=== PATIENT | male | born 1945 | race Caucasian/White ===

== ENCOUNTER 2017-09-16 15:00 | Inpatient (IN) ==
[2017-09-17 15:48] VITALS: BP 158/76
== END 2017-09-17 16:27 | disposition home or self-care (01) | DRG 247 ==
LOC: N.ED 15:00 → INTOOBSV 21:03 → N.TELEN 21:25 → N.EDINP 21:27 → N.TELEN 21:38 → N.SDSINP 21:38
PROVIDERS: ADMIT Internal Medicine Cardiovascular Disease; ATTEND Internal Medicine Cardiovascular Disease

== ENCOUNTER 2017-11-03 22:49 | Inpatient (IN) ==
[2017-11-03] MEDS ORDERED: ASPIRIN 325 MG TABLET PO STA (23:24)
[2017-11-03] MEDS: NITROGLYCERIN SL 0.4 MG TABLET SL PRN (23:35)
[2017-11-04] MEDS ORDERED: ONDANSETRON 4 MG/2 ML VIAL ONE (00:22)
[2017-11-04] MEDS ORDERED: ONDANSETRON 4 MG/2 ML VIAL IV STA (00:23)
[2017-11-04] MEDS: NITROGLYCERIN SL 0.4 MG TABLET SL PRN (00:24)
[2017-11-04] MEDS ORDERED: ACETAMINOPHEN 500 MG TABLET PO STA (00:27)
[2017-11-04] MEDS ORDERED: NITROGLYCERIN DRIP 50 MG/250 ML BOTTLE IV PRN ×2 (00:41→04:04)
[2017-11-04 00:42] LABS: Basophils % 0.4 % (0.0-0.8); Eosinophils # 0.1 10*3/uL (0.0-0.87); Hematocrit 31.6 VOL% (42.0-52.0); Hemoglobin 10.7 GM/DL (14.0-18.0); Immature Granulocytes % 0.3 %; Immature Granulocytes Absolute 0.02 #; Lymphocytes # 1.1 10*3/uL (1.4-4.0); Lymphocytes % 13.6 % (21.2-54.2); Mean Corpuscular HGB Conc 33.9 GM/DL (32-36); Mean Corpuscular Hemoglobin 31 PG (27-34); Mean Corpuscular Volume 90.3 FL (87-102); Mean Platelet Volume 10.2 FL (9.6-12.0); Monocytes # 0.7 10*3/uL (0.11-0.8); Monocytes % 9.1 % (1.7-12.7); Neutrophils # 5.9 10*3/uL (1.4-7.4); Neutrophils % 75.6 % (38.7-73.9); Platelet Count 216 T/CUMM (130-400); Red Cell Distribution Width 13.2 % (9.3-17.3); White Blood Count 7.8 T/CUMM (4-12)
[2017-11-04 00:55] LABS: Albumin 3.5 G/DL (3.4-5.0); Osmolality,Calculated 283.3 MOS/KG (273-304); Potassium 3.7 MMOL/L (3.5-5.1); Total Protein 7.3 G/DL (6.4-8.3)
[2017-11-04 00:57] LABS: Troponin I < 0.015 NG/ML (0.00-0.045)
[2017-11-04] MEDS ORDERED: DOCUSATE SODIUM 100 MG CAPSULE PO PRN (06:07)
[2017-11-04] MEDS: SODIUM CHLORIDE 0.9% 1,000 ML IV SCH ×2 (07:26→22:55)
[2017-11-04 08:13] LABS: Calcium 8.7 MG/DL (8.5-10.1); Osmolality,Calculated 284.3 MOS/KG (273-304); Potassium 4.6 MMOL/L (3.5-5.1)
[2017-11-04 08:19] LABS: Troponin I 0.016 NG/ML (0.00-0.045)
[2017-11-04] MEDS ORDERED: NITROGLYCERIN SL 0.4 MG TABLET SL PRN (09:46)
[2017-11-04] MEDS: LOSARTAN 50 MG TABLET PO SCH (10:56)
[2017-11-04] MEDS: CARVEDILOL 3.125 MG TABLET PO SCH ×2 (10:56→21:08)
[2017-11-04] MEDS: ASPIRIN EC 81 MG TABLET PO SCH (10:57)
[2017-11-04] MEDS: TICAGRELOR 90 MG TABLET PO SCH ×2 (10:57→21:08)
[2017-11-04] MEDS: PANTOPRAZOLE 40 MG TABLET PO SCH (10:58)
[2017-11-04] MEDS ORDERED: ROSUVASTATIN 20 MG TABLET PO SCH (21:00)
[2017-11-05] MEDS: LOSARTAN 50 MG TABLET PO SCH (08:15)
[2017-11-05] MEDS: TICAGRELOR 90 MG TABLET PO SCH (08:15)
[2017-11-05] MEDS: PANTOPRAZOLE 40 MG TABLET PO SCH (08:15)
[2017-11-05] MEDS: ASPIRIN EC 81 MG TABLET PO SCH (08:16)
[2017-11-05] MEDS: CARVEDILOL 3.125 MG TABLET PO SCH (08:16)
[2017-11-05] MEDS ORDERED: LOSARTAN 50 MG TABLET PO SCH (08:36)
[2017-11-05 12:07] VITALS: BP 163/70
[2017-11-05] MEDS ORDERED: amLODIPine 2.5 MG TABLET PO SCH (13:30)
== END 2017-11-05 14:40 | disposition home or self-care (01) | DRG 392 ==
LOC: N.ED 22:49 → N.EDINP 11-04 03:30 → N.ICU 11-04 03:42 → N.TELEN 11-04 13:19
PROVIDERS: ADMIT Family Medicine; ATTEND Family Medicine

== ENCOUNTER 2018-04-29 20:31 | Observation (INO) ==
[2018-04-29 20:59] LABS: Basophils % 0.4 % (0.0-0.8); Eosinophils # 0.3 10*3/uL (0.0-0.87); Eosinophils % 2.8 % (0.00-10.9); Hematocrit 37.5 VOL% (42.0-52.0); Hemoglobin 12.7 GM/DL (14.0-18.0); Immature Granulocytes % 0.3 %; Immature Granulocytes Absolute 0.03 #; Lymphocytes # 1.3 10*3/uL (1.4-4.0); Lymphocytes % 13.1 % (21.2-54.2); Mean Corpuscular HGB Conc 33.9 GM/DL (32-36); Mean Corpuscular Hemoglobin 30 PG (27-34); Mean Corpuscular Volume 89.3 FL (87-102); Mean Platelet Volume 9.6 FL (9.6-12.0); Monocytes # 0.8 10*3/uL (0.11-0.8); Monocytes % 8.5 % (1.7-12.7); Neutrophils # 7.3 10*3/uL (1.4-7.4); Neutrophils % 74.9 % (38.7-73.9); Platelet Count 245 T/CUMM (130-400); Red Cell Distribution Width 13.2 % (9.3-17.3); White Blood Count 9.7 T/CUMM (4-12)
[2018-04-29] MEDS ORDERED: ONDANSETRON 4 MG/2 ML VIAL IV STA (21:08)
[2018-04-29] MEDS ORDERED: ALUM/MAG/SIMETH/LIDO VISC 1:1 30 ML BOTTLE PO STA (21:08)
[2018-04-29] MEDS ORDERED: NITROGLYCERIN 2% OINT 1 INCH/GM PACK TOP STA (21:08)
[2018-04-29] MEDS ORDERED: ASPIRIN 325 MG TABLET PO STA (21:08)
[2018-04-29] MEDS ORDERED: HYDROmorphone 2 MG/1 ML VIAL IV STA (21:08)
[2018-04-29 21:25] LABS: Alanine Aminotransferase 39 U/L (16-61); Albumin 3.8 G/DL (3.4-5.0); Alkaline Phosphatase 105 U/L (45-117); Aspartate Amino Transferase 62 U/L (0-37); Blood Urea Nitrogen 17 MG/DL (7-18); Glucose 105 MG/DL (74-106); Osmolality,Calculated 276.7 MOS/KG (273-304); Sodium 138 MMOL/L (136-145); Total Protein 8.6 G/DL (6.4-8.3); Troponin I < 0.015 NG/ML (0.00-0.045)
[2018-04-29 22:49] LABS: PT Patient Result 10.7 SECS
[2018-04-30] MEDS ORDERED: HYDROmorphone 2 MG/1 ML VIAL IV PRN (01:09)
[2018-04-30] MEDS ORDERED: ACETAMINOPHEN 325 MG TABLET PO PRN (01:09)
[2018-04-30] MEDS ORDERED: NITROGLYCERIN SL 0.4 MG TABLET SL PRN (01:09)
[2018-04-30] MEDS ORDERED: ONDANSETRON 4 MG/2 ML VIAL IV PRN (01:09)
[2018-04-30] MEDS: SODIUM CHLORIDE 0.9% 1,000 ML IV SCH (01:43)
[2018-04-30] MEDS: NITROGLYCERIN 2% OINT 1 INCH/GM PACK TOP SCH ×4 (01:43→21:13)
[2018-04-30 04:42] LABS: Basophils % 0.4 % (0.0-0.8); Eosinophils # 0.1 10*3/uL (0.0-0.87); Eosinophils % 0.9 % (0.00-10.9); Hemoglobin 11.3 GM/DL (14.0-18.0); Immature Granulocytes % 0.4 %; Immature Granulocytes Absolute 0.02 #; Lymphocytes % 17.1 % (21.2-54.2); Mean Corpuscular HGB Conc 33.2 GM/DL (32-36); Mean Corpuscular Hemoglobin 30 PG (27-34); Mean Corpuscular Volume 90.7 FL (87-102); Monocytes # 0.6 10*3/uL (0.11-0.8); Monocytes % 10.6 % (1.7-12.7); Neutrophils # 3.9 10*3/uL (1.4-7.4); Neutrophils % 70.6 % (38.7-73.9); Platelet Count 217 T/CUMM (130-400); Red Blood Count 3.75 MC/CUMM (3.8-5.5); Red Cell Distribution Width 13.4 % (9.3-17.3); White Blood Count 5.6 T/CUMM (4-12)
[2018-04-30 05:07] LABS: Albumin 3.2 G/DL (3.4-5.0); Bilirubin,Total 1.6 MG/DL (0.2-1.0); Calcium 8.5 MG/DL (8.5-10.1); Osmolality,Calculated 281.5 MOS/KG (273-304); Risk Ratio 1.71; Total Protein 7.3 G/DL (6.4-8.3); VLDL CHOLESTEROL 9.6 MG/DL
[2018-04-30] MEDS: LOSARTAN 50 MG TABLET PO SCH (13:27)
[2018-04-30] MEDS: ASPIRIN EC 81 MG TABLET PO SCH (13:29)
[2018-04-30] MEDS: DOCUSATE SODIUM 100 MG CAPSULE PO SCH ×2 (13:29→21:24)
[2018-04-30] MEDS: TICAGRELOR 90 MG TABLET PO SCH ×2 (13:30→21:14)
[2018-04-30] MEDS: CARVEDILOL 3.125 MG TABLET PO SCH ×2 (13:31→21:14)
[2018-04-30] MEDS: PANTOPRAZOLE 40 MG VIAL IV SCH (13:36)
[2018-04-30] MEDS: ROSUVASTATIN 20 MG TABLET PO SCH (21:14)
[2018-05-01] MEDS: NITROGLYCERIN 2% OINT 1 INCH/GM PACK TOP SCH ×4 (00:45→17:09)
[2018-05-01] MEDS: SODIUM CHLORIDE 0.9% 1,000 ML IV SCH (00:46)
[2018-05-01] MEDS: PANTOPRAZOLE 40 MG VIAL IV SCH (08:52)
[2018-05-01] MEDS: TICAGRELOR 90 MG TABLET PO SCH ×2 (08:53→22:02)
[2018-05-01] MEDS: LOSARTAN 50 MG TABLET PO SCH (08:53)
[2018-05-01] MEDS: CARVEDILOL 3.125 MG TABLET PO SCH ×2 (08:53→22:02)
[2018-05-01] MEDS: ASPIRIN EC 81 MG TABLET PO SCH (08:53)
[2018-05-01] MEDS: DOCUSATE SODIUM 100 MG CAPSULE PO SCH ×3 (08:54→22:06)
[2018-05-01] MEDS: ROSUVASTATIN 20 MG TABLET PO SCH (22:01)
[2018-05-02] MEDS: NITROGLYCERIN 2% OINT 1 INCH/GM PACK TOP SCH ×2 (00:43→07:05)
[2018-05-02 04:37] LABS: Basophils % 0.6 % (0.0-0.8); Eosinophils # 0.2 10*3/uL (0.0-0.87); Eosinophils % 3.2 % (0.00-10.9); Hematocrit 34.5 VOL% (42.0-52.0); Hemoglobin 11.3 GM/DL (14.0-18.0); Immature Granulocytes % 0.5 %; Immature Granulocytes Absolute 0.03 #; Lymphocytes # 1.7 10*3/uL (1.4-4.0); Mean Corpuscular HGB Conc 32.8 GM/DL (32-36); Mean Corpuscular Hemoglobin 30 PG (27-34); Mean Corpuscular Volume 90.3 FL (87-102); Mean Platelet Volume 10.1 FL (9.6-12.0); Monocytes # 0.7 10*3/uL (0.11-0.8); Monocytes % 11.7 % (1.7-12.7); Neutrophils # 3.5 10*3/uL (1.4-7.4); Platelet Count 234 T/CUMM (130-400); Red Blood Count 3.82 MC/CUMM (3.8-5.5); Red Cell Distribution Width 13.3 % (9.3-17.3); White Blood Count 6.2 T/CUMM (4-12)
[2018-05-02 04:52] LABS: Albumin 3.5 G/DL (3.4-5.0); Bilirubin,Direct 0.22 MG/DL (0.0-0.20); Bilirubin,Indirect 0.4 MG/DL (0.0-1.0); Bilirubin,Total 0.6 MG/DL (0.2-1.0); Total Protein 7.2 G/DL (6.4-8.3)
[2018-05-02 04:56] LABS: Calcium 8.7 MG/DL (8.5-10.1); Osmolality,Calculated 280.4 MOS/KG (273-304); Potassium 3.7 MMOL/L (3.5-5.1)
[2018-05-02] MEDS: SODIUM CHLORIDE 0.9% 1,000 ML IV SCH (07:05)
[2018-05-02] MEDS: DOCUSATE SODIUM 100 MG CAPSULE PO SCH ×2 (10:27→10:29)
[2018-05-02] MEDS: ASPIRIN EC 81 MG TABLET PO SCH (10:27)
[2018-05-02] MEDS: LOSARTAN 50 MG TABLET PO SCH (10:27)
[2018-05-02] MEDS: TICAGRELOR 90 MG TABLET PO SCH (10:28)
[2018-05-02] MEDS: CARVEDILOL 3.125 MG TABLET PO SCH (10:28)
[2018-05-02] MEDS: PANTOPRAZOLE 40 MG VIAL IV SCH (10:29)
[2018-05-02 12:33] VITALS: BP 132/68
== END 2018-05-02 13:10 | disposition home or self-care (01) ==
LOC: N.EDINP 20:31 → N.ED 20:31 → N.TELEN 23:39
PROVIDERS: ADMIT Family Medicine; ATTEND Family Medicine

== ENCOUNTER 2018-05-30 14:34 | Inpatient (IN) ==
[2018-05-30 15:22] LABS: Basophils % 0.4 % (0.0-0.8); Eosinophils % 0.4 % (0.00-10.9); Hematocrit 36.1 VOL% (42.0-52.0); Hemoglobin 11.9 GM/DL (14.0-18.0); Immature Granulocytes % 0.4 %; Immature Granulocytes Absolute 0.02 #; Lymphocytes # 0.7 10*3/uL (1.4-4.0); Lymphocytes % 11.8 % (21.2-54.2); Mean Corpuscular Hemoglobin 30 PG (27-34); Mean Platelet Volume 10.6 FL (9.6-12.0); Monocytes # 0.4 10*3/uL (0.11-0.8); Monocytes % 6.9 % (1.7-12.7); Neutrophils # 4.6 10*3/uL (1.4-7.4); Neutrophils % 80.1 % (38.7-73.9); Platelet Count 215 T/CUMM (130-400); Red Blood Count 4.01 MC/CUMM (3.8-5.5); White Blood Count 5.7 T/CUMM (4-12)
[2018-05-30] MEDS ORDERED: HYDROmorphone 2 MG/1 ML VIAL IV STA (15:28)
[2018-05-30] MEDS ORDERED: SODIUM CHLORIDE 0.9% 500 ML IV STA (15:28)
[2018-05-30] MEDS ORDERED: ONDANSETRON 4 MG/2 ML VIAL IV STA (15:28)
[2018-05-30 15:48] LABS: Bilirubin,Total 1.9 MG/DL (0.2-1.0); Calcium 8.8 MG/DL (8.5-10.1); Osmolality,Calculated 281.5 MOS/KG (273-304); Potassium 4.3 MMOL/L (3.5-5.1); Total Protein 8.1 G/DL (6.4-8.3)
[2018-05-30] MEDS ORDERED: ACETAMINOPHEN 325 MG TABLET PO PRN (16:12)
[2018-05-30] MEDS ORDERED: ONDANSETRON 4 MG/2 ML VIAL IV PRN (16:12)
[2018-05-30] MEDS: SODIUM CHLORIDE 0.45% 1,000 ML IV SCH (16:39)
[2018-05-30] MEDS ORDERED: PIPERACILLIN/TAZOBACTAM 3,375 MG VIAL IV ONE (17:05)
[2018-05-30] MEDS: PIPERACILLIN/TAZOBACTAM 3,375 MG in SODIUM CHLORIDE 0.9% 100 ML IV SCH (17:12)
[2018-05-30] MEDS ORDERED: NITROGLYCERIN SL 0.4 MG TABLET SL PRN (17:46)
[2018-05-30] MEDS: ENOXAPARIN 40 MG/0.4 ML SYRINGE SUBCUT SCH (20:36)
[2018-05-30] MEDS: DOCUSATE SODIUM 100 MG CAPSULE PO SCH (20:36)
[2018-05-30] MEDS: CARVEDILOL 3.125 MG TABLET PO SCH (20:36)
[2018-05-31] MEDS: PIPERACILLIN/TAZOBACTAM 3,375 MG in SODIUM CHLORIDE 0.9% 100 ML IV SCH ×3 (01:33→16:59)
[2018-05-31] MEDS: SODIUM CHLORIDE 0.45% 1,000 ML IV SCH ×4 (01:34→16:30)
[2018-05-31 04:52] LABS: Basophils % 0.7 % (0.0-0.8); Eosinophils % 0.7 % (0.00-10.9); Hematocrit 30.7 VOL% (42.0-52.0); Hemoglobin 10.1 GM/DL (14.0-18.0); Immature Granulocytes % 0.2 %; Immature Granulocytes Absolute 0.01 #; Lymphocytes # 1.1 10*3/uL (1.4-4.0); Lymphocytes % 24.3 % (21.2-54.2); Mean Corpuscular HGB Conc 32.9 GM/DL (32-36); Mean Corpuscular Hemoglobin 29 PG (27-34); Mean Corpuscular Volume 89.5 FL (87-102); Mean Platelet Volume 11.3 FL (9.6-12.0); Monocytes # 0.7 10*3/uL (0.11-0.8); Monocytes % 15.3 % (1.7-12.7); Neutrophils # 2.6 10*3/uL (1.4-7.4); Neutrophils % 58.8 % (38.7-73.9); Platelet Count 183 T/CUMM (130-400); Red Blood Count 3.43 MC/CUMM (3.8-5.5); Red Cell Distribution Width 13.2 % (9.3-17.3); White Blood Count 4.4 T/CUMM (4-12)
[2018-05-31 05:07] LABS: Albumin 3.2 G/DL (3.4-5.0); Bilirubin,Total 2.8 MG/DL (0.2-1.0); Calcium 7.9 MG/DL (8.5-10.1); Potassium 4.1 MMOL/L (3.5-5.1); Total Protein 6.6 G/DL (6.4-8.3)
[2018-05-31] MEDS: DOCUSATE SODIUM 100 MG CAPSULE PO SCH ×3 (08:37→20:29)
[2018-05-31] MEDS: ASPIRIN EC 81 MG TABLET PO SCH (08:37)
[2018-05-31] MEDS: PANTOPRAZOLE 40 MG VIAL IV SCH (08:43)
[2018-05-31] MEDS: LOSARTAN 50 MG TABLET PO SCH (08:44)
[2018-05-31] MEDS: CARVEDILOL 3.125 MG TABLET PO SCH ×2 (08:44→20:29)
[2018-05-31 14:36] LABS: Hepatitis A Ab IgM Quant 0.16 Index; Hepatitis A Ab IgM Result Negative (Negative); Hepatitis B Core IgM Quant 0.12 Index; Hepatitis B Core IgM Result Negative (Negative); Hepatitis B Surface Ag Quant 0.25 Index; Hepatitis B Surface Ag Result Negative (Negative); Hepatitis C Virus Ab Quant 0.03 Index; Hepatitis C Virus Ab Result Negative (Negative)
[2018-05-31] MEDS: ENOXAPARIN 40 MG/0.4 ML SYRINGE SUBCUT SCH (20:29)
[2018-05-31] MEDS ORDERED: diphenhydrAMINE CAP 25 MG CAPSULE PO SCH (21:00)
[2018-06-01] MEDS: PIPERACILLIN/TAZOBACTAM 3,375 MG in SODIUM CHLORIDE 0.9% 100 ML IV SCH ×3 (00:35→17:12)
[2018-06-01] MEDS: SODIUM CHLORIDE 0.45% 1,000 ML IV SCH ×3 (00:37→16:30)
[2018-06-01 05:49] LABS: Basophils % 0.7 % (0.0-0.8); Eosinophils # 0.2 10*3/uL (0.0-0.87); Eosinophils % 4.6 % (0.00-10.9); Hematocrit 29.7 VOL% (42.0-52.0); Hemoglobin 9.5 GM/DL (14.0-18.0); Immature Granulocytes % 0.2 %; Immature Granulocytes Absolute 0.01 #; Lymphocytes # 1.5 10*3/uL (1.4-4.0); Lymphocytes % 35.1 % (21.2-54.2); Mean Corpuscular Hemoglobin 29 PG (27-34); Mean Corpuscular Volume 90.8 FL (87-102); Mean Platelet Volume 10.9 FL (9.6-12.0); Monocytes # 0.5 10*3/uL (0.11-0.8); Monocytes % 12.1 % (1.7-12.7); Neutrophils % 47.3 % (38.7-73.9); Platelet Count 178 T/CUMM (130-400); Red Blood Count 3.27 MC/CUMM (3.8-5.5); Red Cell Distribution Width 13.5 % (9.3-17.3); White Blood Count 4.1 T/CUMM (4-12)
[2018-06-01 06:10] LABS: Albumin 3.1 G/DL (3.4-5.0); Bilirubin,Direct 0.55 MG/DL (0.0-0.20); Bilirubin,Indirect 0.9 MG/DL (0.0-1.0); Bilirubin,Total 1.4 MG/DL (0.2-1.0); Total Protein 6.4 G/DL (6.4-8.3)
[2018-06-01 06:11] LABS: Albumin 3.1 G/DL (3.4-5.0); Bilirubin,Total 1.4 MG/DL (0.2-1.0); Calcium 7.9 MG/DL (8.5-10.1); Potassium 4.1 MMOL/L (3.5-5.1); Total Protein 6.4 G/DL (6.4-8.3)
[2018-06-01] MEDS: CARVEDILOL 3.125 MG TABLET PO SCH ×2 (09:06→21:02)
[2018-06-01] MEDS: LOSARTAN 50 MG TABLET PO SCH (09:06)
[2018-06-01] MEDS: ASPIRIN EC 81 MG TABLET PO SCH (09:06)
[2018-06-01] MEDS: DOCUSATE SODIUM 100 MG CAPSULE PO SCH (09:24)
[2018-06-01] MEDS: PANTOPRAZOLE 40 MG VIAL IV SCH (09:25)
[2018-06-01] MEDS: diphenhydrAMINE CAP 50 MG CAPSULE PO SCH ×2 (13:20→21:01)
[2018-06-01] MEDS: ENOXAPARIN 40 MG/0.4 ML SYRINGE SUBCUT SCH (21:01)
[2018-06-01] MEDS: POLYETHYLENE GLYCOL POWDER 17 GM PACK PO SCH (21:01)
[2018-06-02] MEDS: PIPERACILLIN/TAZOBACTAM 3,375 MG in SODIUM CHLORIDE 0.9% 100 ML IV SCH ×3 (00:21→17:00)
[2018-06-02 04:45] LABS: Basophils # 0.1 10*3/uL (0.0-0.2); Basophils % 1.1 % (0.0-0.8); Eosinophils # 0.3 10*3/uL (0.0-0.87); Eosinophils % 5.7 % (0.00-10.9); Hematocrit 29.8 VOL% (42.0-52.0); Hemoglobin 9.7 GM/DL (14.0-18.0); Immature Granulocytes % 0.5 %; Immature Granulocytes Absolute 0.02 #; Lymphocytes # 1.7 10*3/uL (1.4-4.0); Lymphocytes % 38.4 % (21.2-54.2); Mean Corpuscular HGB Conc 32.6 GM/DL (32-36); Mean Corpuscular Hemoglobin 29 PG (27-34); Mean Platelet Volume 11.6 FL (9.6-12.0); Monocytes # 0.5 10*3/uL (0.11-0.8); Monocytes % 12.3 % (1.7-12.7); Neutrophils # 1.8 10*3/uL (1.4-7.4); Platelet Count 190 T/CUMM (130-400); Red Blood Count 3.31 MC/CUMM (3.8-5.5); Red Cell Distribution Width 13.4 % (9.3-17.3); White Blood Count 4.4 T/CUMM (4-12)
[2018-06-02 05:06] LABS: Bilirubin,Direct 0.3 MG/DL (0.0-0.20); Bilirubin,Indirect 1.1 MG/DL (0.0-1.0); Bilirubin,Total 1.4 MG/DL (0.2-1.0); Total Protein 6.5 G/DL (6.4-8.3)
[2018-06-02 05:09] LABS: Bilirubin,Total 0.9 MG/DL (0.2-1.0); Calcium 8.4 MG/DL (8.5-10.1); Potassium 3.9 MMOL/L (3.5-5.1); Total Protein 6.6 G/DL (6.4-8.3)
[2018-06-02] MEDS: SODIUM CHLORIDE 0.45% 1,000 ML IV SCH ×2 (05:25→08:44)
[2018-06-02] MEDS: PANTOPRAZOLE 40 MG VIAL IV SCH (08:45)
[2018-06-02] MEDS: LOSARTAN 50 MG TABLET PO SCH (08:45)
[2018-06-02] MEDS: ASPIRIN EC 81 MG TABLET PO SCH (08:47)
[2018-06-02] MEDS: POLYETHYLENE GLYCOL POWDER 17 GM PACK PO SCH ×2 (08:47→21:54)
[2018-06-02] MEDS: CARVEDILOL 3.125 MG TABLET PO SCH ×2 (08:47→21:54)
[2018-06-02] MEDS: diphenhydrAMINE CAP 50 MG CAPSULE PO SCH ×2 (09:29→21:54)
[2018-06-03] MEDS: SODIUM CHLORIDE 0.45% 1,000 ML IV SCH ×4 (01:25→22:45)
[2018-06-03] MEDS: PIPERACILLIN/TAZOBACTAM 3,375 MG in SODIUM CHLORIDE 0.9% 100 ML IV SCH ×3 (01:28→17:18)
[2018-06-03 05:31] LABS: Albumin 3.1 G/DL (3.4-5.0); Bilirubin,Direct 0.25 MG/DL (0.0-0.20); Bilirubin,Indirect 1.2 MG/DL (0.0-1.0); Bilirubin,Total 1.4 MG/DL (0.2-1.0); Total Protein 6.7 G/DL (6.4-8.3)
[2018-06-03] MEDS: PANTOPRAZOLE 40 MG VIAL IV SCH (08:22)
[2018-06-03] MEDS: diphenhydrAMINE CAP 50 MG CAPSULE PO SCH ×2 (08:23→20:41)
[2018-06-03] MEDS: LOSARTAN 50 MG TABLET PO SCH ×2 (08:23→20:41)
[2018-06-03] MEDS: CARVEDILOL 3.125 MG TABLET PO SCH ×2 (08:23→20:41)
[2018-06-03] MEDS: ASPIRIN EC 81 MG TABLET PO SCH (08:23)
[2018-06-03] MEDS: POLYETHYLENE GLYCOL POWDER 17 GM PACK PO SCH ×2 (08:24→20:42)
[2018-06-03 14:57] LABS: Basophils % 0.6 % (0.0-0.8); Eosinophils # 0.2 10*3/uL (0.0-0.87); Eosinophils % 3.8 % (0.00-10.9); Hematocrit 32.1 VOL% (42.0-52.0); Hemoglobin 10.6 GM/DL (14.0-18.0); Immature Granulocytes % 0.4 %; Immature Granulocytes Absolute 0.02 #; Lymphocytes # 1.5 10*3/uL (1.4-4.0); Lymphocytes % 28.6 % (21.2-54.2); Mean Corpuscular Hemoglobin 30 PG (27-34); Mean Corpuscular Volume 90.4 FL (87-102); Mean Platelet Volume 10.7 FL (9.6-12.0); Monocytes # 0.6 10*3/uL (0.11-0.8); Monocytes % 11.1 % (1.7-12.7); Neutrophils # 2.9 10*3/uL (1.4-7.4); Neutrophils % 55.5 % (38.7-73.9); Platelet Count 220 T/CUMM (130-400); Red Blood Count 3.55 MC/CUMM (3.8-5.5); Red Cell Distribution Width 13.5 % (9.3-17.3); White Blood Count 5.2 T/CUMM (4-12)
[2018-06-03 15:12] LABS: Calcium 8.4 MG/DL (8.5-10.1); Osmolality,Calculated 286.1 MOS/KG (273-304); Potassium 4.2 MMOL/L (3.5-5.1)
[2018-06-04] MEDS: PIPERACILLIN/TAZOBACTAM 3,375 MG in SODIUM CHLORIDE 0.9% 100 ML IV SCH ×3 (01:15→16:55)
[2018-06-04] MEDS: SODIUM CHLORIDE 0.45% 1,000 ML IV SCH ×3 (01:15→16:58)
[2018-06-04] MEDS ORDERED: FAMOTIDINE 20 MG TABLET PO ONE (06:00)
[2018-06-04] MEDS ORDERED: DIAZEPAM 5 MG TABLET PO ONE (06:00)
[2018-06-04] MEDS: CARVEDILOL 3.125 MG TABLET PO SCH ×3 (07:29→21:15)
[2018-06-04] MEDS: LOSARTAN 50 MG TABLET PO SCH ×2 (07:29→09:28)
[2018-06-04] MEDS: diphenhydrAMINE CAP 50 MG CAPSULE PO SCH ×2 (09:25→21:16)
[2018-06-04] MEDS: ASPIRIN EC 81 MG TABLET PO SCH (09:25)
[2018-06-04] MEDS: POLYETHYLENE GLYCOL POWDER 17 GM PACK PO SCH ×2 (09:26→21:15)
[2018-06-04] MEDS: PANTOPRAZOLE 40 MG VIAL IV SCH (09:26)
[2018-06-04] MEDS ORDERED: NEOSTIGMINE 10 MG/10 ML VIAL IV ONE (10:22)
[2018-06-04] MEDS ORDERED: LIDOCAINE 1% 5 ML VIAL ONE (11:07)
[2018-06-04] MEDS ORDERED: PROPOFOL 200 MG/20 ML VIAL IV ONE (11:07)
[2018-06-04] MEDS ORDERED: GLYCOPYRROLATE 0.4 MG/2 ML VIAL ONE (11:08)
[2018-06-04] MEDS ORDERED: ePHEDrine 50 MG/ML AMP ONE (11:08)
[2018-06-04] MEDS ORDERED: MIDAZOLAM 2 MG/2 ML VIAL ONE (11:08)
[2018-06-04] MEDS ORDERED: fentaNYL 100 MCG/2 ML VIAL ONE (11:08)
[2018-06-04] MEDS ORDERED: NEOSTIGMINE 10 MG/10 ML VIAL ONE (11:09)
[2018-06-04] MEDS ORDERED: SUCCINYLCHOLINE 200 MG/10 ML VIAL ONE (11:09)
[2018-06-04] MEDS ORDERED: ROCURONIUM 100 MG/10 ML VIAL IV ONE (11:09)
[2018-06-04] MEDS ORDERED: SEVOFLURANE 1 UNIT/15 MINUTE INH ONE (11:10)
[2018-06-04 12:18] LABS: Hematocrit 31.8 VOL% (42.0-52.0); Hemoglobin 10.2 GM/DL (14.0-18.0)
[2018-06-04] MEDS: HYDROmorphone 2 MG/1 ML VIAL IV PRN ×2 (15:38→21:51)
[2018-06-04 19:19] LABS: Hematocrit 33.9 VOL% (42.0-52.0)
[2018-06-04] MEDS: LOSARTAN 25 MG TABLET PO SCH (21:15)
[2018-06-05] MEDS: SODIUM CHLORIDE 0.45% 1,000 ML IV SCH ×3 (00:30→21:05)
[2018-06-05] MEDS: PIPERACILLIN/TAZOBACTAM 3,375 MG in SODIUM CHLORIDE 0.9% 100 ML IV SCH ×3 (00:41→17:59)
[2018-06-05 02:33] LABS: Basophils % 0.5 % (0.0-0.8); Eosinophils # 0.1 10*3/uL (0.0-0.87); Eosinophils % 1.1 % (0.00-10.9); Hematocrit 32.4 VOL% (42.0-52.0); Hemoglobin 10.1 GM/DL (14.0-18.0); Immature Granulocytes % 0.5 %; Immature Granulocytes Absolute 0.04 #; Lymphocytes # 1.1 10*3/uL (1.4-4.0); Lymphocytes % 15.2 % (21.2-54.2); Mean Corpuscular HGB Conc 31.2 GM/DL (32-36); Mean Corpuscular Hemoglobin 29 PG (27-34); Mean Corpuscular Volume 93.9 FL (87-102); Monocytes # 0.6 10*3/uL (0.11-0.8); Monocytes % 8.8 % (1.7-12.7); Neutrophils # 5.4 10*3/uL (1.4-7.4); Neutrophils % 73.9 % (38.7-73.9); Platelet Count 195 T/CUMM (130-400); Red Blood Count 3.45 MC/CUMM (3.8-5.5); Red Cell Distribution Width 13.9 % (9.3-17.3); White Blood Count 7.3 T/CUMM (4-12)
[2018-06-05 02:52] LABS: Albumin 3.2 G/DL (3.4-5.0); Bilirubin,Total 0.7 MG/DL (0.2-1.0); Calcium 8.4 MG/DL (8.5-10.1); Osmolality,Calculated 279.4 MOS/KG (273-304); Potassium 4.9 MMOL/L (3.5-5.1)
[2018-06-05 03:08] LABS: Albumin 3.1 G/DL (3.4-5.0); Bilirubin,Direct 0.28 MG/DL (0.0-0.20); Bilirubin,Indirect 0.4 MG/DL (0.0-1.0); Bilirubin,Total 0.7 MG/DL (0.2-1.0)
[2018-06-05] MEDS: HYDROmorphone 2 MG/1 ML VIAL IV PRN ×2 (06:03→22:06)
[2018-06-05] MEDS: ASPIRIN EC 81 MG TABLET PO SCH (08:25)
[2018-06-05] MEDS: LOSARTAN 25 MG TABLET PO SCH ×2 (08:25→20:59)
[2018-06-05] MEDS: diphenhydrAMINE CAP 50 MG CAPSULE PO SCH ×2 (08:25→20:59)
[2018-06-05] MEDS: CARVEDILOL 3.125 MG TABLET PO SCH ×2 (08:25→21:07)
[2018-06-05] MEDS: PANTOPRAZOLE 40 MG VIAL IV SCH ×2 (08:30→21:00)
[2018-06-05] MEDS: POLYETHYLENE GLYCOL POWDER 17 GM PACK PO SCH ×2 (09:31→21:08)
[2018-06-05 10:55] LABS: Anti-Nuclear Antibody Pattern SPECKLED
[2018-06-05 11:22] LABS: Double Stranded DNA Antibodies < 25.0 IU/ML
[2018-06-05 12:48] LABS: Hematocrit 31.7 VOL% (42.0-52.0)
[2018-06-05] MEDS ORDERED: MICROFIBRILLAR COLLAGEN POWDER 1 GM CAN TOP ONE (13:01)
[2018-06-05] MEDS ORDERED: ONDANSETRON 4 MG/2 ML VIAL ONE (13:36)
[2018-06-05] MEDS ORDERED: fentaNYL 100 MCG/2 ML VIAL ONE (13:36)
[2018-06-05] MEDS ORDERED: MIDAZOLAM 2 MG/2 ML VIAL ONE (13:36)
[2018-06-06] MEDS: PIPERACILLIN/TAZOBACTAM 3,375 MG in SODIUM CHLORIDE 0.9% 100 ML IV SCH ×3 (01:05→17:58)
[2018-06-06] MEDS: HYDROmorphone 2 MG/1 ML VIAL IV PRN ×2 (03:17→21:05)
[2018-06-06 06:20] LABS: Basophils % 0.4 % (0.0-0.8); Eosinophils # 0.2 10*3/uL (0.0-0.87); Eosinophils % 2.8 % (0.00-10.9); Hematocrit 30.7 VOL% (42.0-52.0); Hemoglobin 9.7 GM/DL (14.0-18.0); Immature Granulocytes % 0.4 %; Immature Granulocytes Absolute 0.03 #; Lymphocytes % 12.7 % (21.2-54.2); Mean Corpuscular HGB Conc 31.6 GM/DL (32-36); Mean Corpuscular Hemoglobin 30 PG (27-34); Mean Corpuscular Volume 93.9 FL (87-102); Mean Platelet Volume 10.4 FL (9.6-12.0); Monocytes % 11.6 % (1.7-12.7); Neutrophils # 5.9 10*3/uL (1.4-7.4); Neutrophils % 72.1 % (38.7-73.9); Platelet Count 186 T/CUMM (130-400); Red Blood Count 3.27 MC/CUMM (3.8-5.5); White Blood Count 8.2 T/CUMM (4-12)
[2018-06-06 06:47] LABS: Calcium 8.6 MG/DL (8.5-10.1); Osmolality,Calculated 278.5 MOS/KG (273-304); Potassium 4.7 MMOL/L (3.5-5.1)
[2018-06-06 08:16] LABS: Anti SS-A Antibodies > 100 EU/ML
[2018-06-06] MEDS: PANTOPRAZOLE 40 MG VIAL IV SCH ×2 (09:00→21:05)
[2018-06-06] MEDS: ASPIRIN EC 81 MG TABLET PO SCH (09:29)
[2018-06-06] MEDS: CARVEDILOL 3.125 MG TABLET PO SCH ×2 (09:30→21:05)
[2018-06-06] MEDS: diphenhydrAMINE CAP 50 MG CAPSULE PO SCH ×2 (09:30→21:05)
[2018-06-06] MEDS: LOSARTAN 25 MG TABLET PO SCH ×2 (09:35→21:05)
[2018-06-06] MEDS: POLYETHYLENE GLYCOL POWDER 17 GM PACK PO SCH ×2 (09:36→21:13)
[2018-06-06] MEDS: ENOXAPARIN 40 MG/0.4 ML SYRINGE SUBCUT SCH (21:06)
[2018-06-07] MEDS: PIPERACILLIN/TAZOBACTAM 3,375 MG in SODIUM CHLORIDE 0.9% 100 ML IV SCH ×2 (01:59→09:07)
[2018-06-07 04:15] LABS: Basophils % 0.4 % (0.0-0.8); Eosinophils # 0.3 10*3/uL (0.0-0.87); Eosinophils % 5.8 % (0.00-10.9); Hematocrit 27.6 VOL% (42.0-52.0); Hemoglobin 8.9 GM/DL (14.0-18.0); Immature Granulocytes % 0.4 %; Immature Granulocytes Absolute 0.02 #; Lymphocytes # 1.6 10*3/uL (1.4-4.0); Lymphocytes % 27.9 % (21.2-54.2); Mean Corpuscular HGB Conc 32.2 GM/DL (32-36); Mean Corpuscular Hemoglobin 30 PG (27-34); Mean Corpuscular Volume 92.9 FL (87-102); Mean Platelet Volume 10.5 FL (9.6-12.0); Monocytes # 0.8 10*3/uL (0.11-0.8); Monocytes % 14.7 % (1.7-12.7); Neutrophils # 2.8 10*3/uL (1.4-7.4); Neutrophils % 50.8 % (38.7-73.9); Platelet Count 177 T/CUMM (130-400); Red Blood Count 2.97 MC/CUMM (3.8-5.5); Red Cell Distribution Width 13.6 % (9.3-17.3); White Blood Count 5.6 T/CUMM (4-12)
[2018-06-07 04:20] LABS: Calcium 8.3 MG/DL (8.5-10.1); Osmolality,Calculated 283.1 MOS/KG (273-304)
[2018-06-07 04:24] LABS: Albumin 2.8 G/DL (3.4-5.0); Calcium 8.1 MG/DL (8.5-10.1); Potassium 4.3 MMOL/L (3.5-5.1); Total Protein 6.3 G/DL (6.4-8.3)
[2018-06-07] MEDS: PANTOPRAZOLE 40 MG VIAL IV SCH (09:05)
[2018-06-07] MEDS: POLYETHYLENE GLYCOL POWDER 17 GM PACK PO SCH (09:07)
[2018-06-07] MEDS: ASPIRIN EC 81 MG TABLET PO SCH (09:07)
[2018-06-07] MEDS: CARVEDILOL 3.125 MG TABLET PO SCH (09:07)
[2018-06-07] MEDS: LOSARTAN 25 MG TABLET PO SCH (09:07)
[2018-06-07] MEDS: diphenhydrAMINE CAP 50 MG CAPSULE PO SCH (09:07)
[2018-06-07] MEDS ORDERED: LACTULOSE 20 GM/30 ML UDCUP PO ONE (09:27)
[2018-06-07 11:43] VITALS: BP 140/72
[2018-06-07 11:47] LABS: Hepatitis A Ab IgM Quant 0.15 Index; Hepatitis A Ab IgM Result Negative (Negative); Hepatitis B Core IgM Quant 0.11 Index; Hepatitis B Core IgM Result Negative (Negative); Hepatitis B Surface Ag Quant < 0.10 Index; Hepatitis B Surface Ag Result Negative (Negative); Hepatitis C Virus Ab Quant 0.03 Index; Hepatitis C Virus Ab Result Negative (Negative)
== END 2018-06-07 14:50 | disposition home or self-care (01) | DRG 418 ==
LOC: N.ED 14:34 → N.EDINP 16:12 → N.3E 18:21
PROVIDERS: ADMIT Family Medicine; ATTEND Family Medicine
PROC: LAPCHOL (2018-06-04 08:34)